=== PATIENT | male | born 1950 | race Caucasian/White ===

== ENCOUNTER 2017-10-03 14:31 | Inpatient (IN) | payer MEDICAID, OTHER ==
[2017-10-03] VITALS (7 sets, daily range): BP systolic 108–132; BP diastolic 71–90; PULSE 80–102; RESP 12–20; Ht 170.2 cm; Wt 79.9 kg
[~2017-10-03] VITALS: Ht 170.2 cm; Wt 79.9 kg
[~2017-10-03 14:31] MED LIST: ASPIRIN 81 MG TAB ONE; CLOPIDOGREL 75 MG TAB ONE; HEPARIN 5,000 UNIT/0.5 ML VIAL ONE; NITROGLYCERIN (SL) 0.4 MG TAB ONE; POTASSIUM CL ONE; SW ONE
[2017-10-03] MEDS ORDERED: ASPIRIN 81 MG TAB PO STA (14:42)
[2017-10-03] MEDS ORDERED: NITROGLYCERIN 2% 1 GM OINT PKT TD STA (14:42)
[2017-10-03] MEDS ORDERED: HEPARIN 1000 UNITS/ML 10 ML INJ IV STA (14:47)
--- NOTE | 2017-10-03 14:51 | ERD ---
ER Documentation Chief Complaint Chief Complaint mid sternal chest pain x40min non-radiating/non-provoked w/ SOB HPI Patient is a 66-year-old male with hypertension who presents with chest pain. The symptoms started 1 hour ago. The patient is having left-sided chest pressure. It is associated with shortness of breath as well. He has had no treatment as of yet. He does not currently have a primary doctor. ROS All systems reviewed and are negative except as per history of present illness. Medications Home Meds No Active Prescriptions or Reported Meds Allergies Allergies: Coded Allergies: No Known Allergy (Unverified , 07/30/14) PMhx/Soc Medical and Surgical Hx: pt denies Medical Hx Hx Cardiac Disorders: Yes (HTN) Hx Alcohol Use: Yes Hx Substance Use: No Hx Tobacco Use: No Smoking Status: Never smoker FmHx Family History: No coronary disease Physical Exam Vitals Vital Signs Date Time Temp Pulse Resp B/P Pulse Ox O2 Delivery O2 Flow Rate FiO2 10/03/17 14:35 98.1 75 20 166/96 99 Physical Exam Const: Moderate distress secondary to chest pain Head: Atraumatic Eyes: Normal Conjunctiva ENT: Normal External Ears, Nose and Mouth. Neck: Full range of motion..~ No meningismus. Resp: Clear to auscultation bilaterally Cardio: Regular rate and rhythm, no murmurs Abd: Soft, non tender, non distended. Normal bowel sounds Skin: No petechiae or rashes Back: No midline or flank tenderness Ext: No cyanosis, or edema Neur: Awake and alert Psych: Normal Mood and Affect Results 24 hrs Current Medications Medications (Trade) Dose Ordered Sig/Landy Route PRN Reason Start Time Stop Time Status Last Admin Dose Admin Aspirin (Aspirin) 162 mg ONCE STAT PO 10/03/17 14:42 10/03/17 14:43 DC Nitroglycerin (Nitroglycerin 2% Oint) 1 inch ONCE STAT TD 10/03/17 14:42 10/03/17 14:43 DC Nitroglycerin (Nitroglycerin (Sl Tab) 0.4 Mg) 1 tab Q5M UP TO 3 DOSES PRN SL CHEST PAIN 10/03/17 15:00 Procedures/MDM EKG read by me: Rate/Rhythm: Regular rate and rhythm at a normal rate Intervals: Normal Impression: ST elevations in the inferior leads with reciprocal depressions consistent with STEMI Chest x-ray is pending at this time. Patient is a 66-year-old male with hypertension who presents with acute chest pain. He was found to have STEMI on EKG. The patient was given aspirin, nitroglycerin, and heparin per Dr. Caceres. I spoke with Dr. Caceres at 1445 and she agreed to take the patient to the cardiac Policy Value Calculator. At 1442 I was shown the patient's EKG and a code STEMI was called overhead. The patient will be admitted to the panel team to the intensive care unit. Dr. Belle will be the accepting physician. Departure Diagnosis: Primary Impression: STEMI (ST elevation myocardial infarction) Involved coronary artery: unspecified coronary artery Qualified Code: I21.3 - ST elevation myocardial infarction (STEMI), unspecified artery Additional Impression: Chest pain Chest pain type: chest pain due to myocardial ischemia Ischemic chest pain type: unspecified angina pectoris type Qualified Code: I20.9 - Chest pain due to myocardial ischemia, unspecified ischemic chest pain type Condition: Critical NEVILLE BRAY MD Oct 03, 2017 14:51
[2017-10-03] MEDS: NITROGLYCERIN (SL) 0.4 MG TAB SL PRN ×2 (14:52→14:55)
[2017-10-03 14:55] LABS: BASOPHIL # 0.1 10^3/ul (0.0-0.1); BASOPHILS % 0.7 % (0.0-2.0); EOSINOPHILS # 0.3 10^3/ul (0.0-0.5); EOSINOPHILS % 2.4 % (0.0-7.0); HEMATOCRIT 46.8 % (42.0-52.0); LYMPHOCYTES # 4.3 10^3/ul (0.8-2.9); LYMPHOCYTES % 38.7 % (15.0-51.0); MEAN CORPUSCULAR HEMOGLOBIN 30.3 pg (29.0-33.0); MEAN CORPUSCULAR HGB CONC 34.2 g/dl (32.0-37.0); MEAN CORPUSCULAR VOLUME 88.6 fl (82.0-101.0); MEAN PLATELET VOLUME 8.6 fl (7.4-10.4); MONOCYTE # 0.7 10^3/ul (0.3-0.9); MONOCYTES % 6.7 % (0.0-11.0); NEUTROPHIL # 5.6 10^3/ul (1.6-7.5); NEUTROPHILS % 50.9 % (39.0-77.0); PLATELET COUNT 288 10^3/UL (140-415); RED BLOOD COUNT 5.28 10^6/ul (4.70-6.10); RED CELL DISTRIBUTION WIDTH 13.2 % (11.5-14.5); WHITE BLOOD COUNT 11.1 10^3/ul (4.8-10.8)
[2017-10-03] MEDS ORDERED: ASPIRIN 81 MG TAB PO ONE (15:00)
--- NOTE | 2017-10-03 15:05 | RADRPT ---
PROCEDURE: Chest x-ray CLINICAL INDICATION: Chest pain TECHNIQUE: Chest single view COMPARISON: None FINDINGS: The heart is normal in size. The pulmonary vessels are normal in caliber. The lungs are clear. The re is minimal scarring in the left lower lung. The costophrenic angles are sharp. The visualized buster ny thorax is unremarkable. IMPRESSION: No acute cardiopulmonary disease. RPTAT: HH .Flako Severino MD, MD Date Time Electronically viewed and signed by .Flako Severino MD, on 10/03/2017 15:05 .W/
[2017-10-03] MEDS ORDERED: IODIXANOL LOCM 100 ML BTL ONE (15:17)
[2017-10-03] MEDS ORDERED: MIDAZOLAM 1 MG/ML 2 ML INJ ONE (15:17)
[2017-10-03] MEDS ORDERED: HEPARIN 1000 UNITS/ML 10 ML INJ ONE (15:17)
[2017-10-03] MEDS ORDERED: LIDOCAINE 1% (MDV) 20 ML INJ ONE (15:17)
[2017-10-03] MEDS ORDERED: NITROGLYCERIN (IC) 100 MCG/ML INJ ONE (15:18)
[2017-10-03] MEDS ORDERED: VERAPAMIL 5 MG INJ ONE (15:18)
[2017-10-03] MEDS ORDERED: FENTAnyl 50 MCG/ML VIAL ONE (15:18)
[2017-10-03 15:19] LABS: CALCIUM 9.2 mg/dl (8.4-10.2); CREATININE 1.02 mg/dl (0.61-1.24); POTASSIUM 3.4 mmol/L (3.5-5.1)
[2017-10-03] MEDS ORDERED: SOD CHLORIDE 0.9% 500 ML ONE (15:30)
[2017-10-03 15:41] LABS: TROPONIN-I 0.444 ng/ml (0.00-0.12)
[2017-10-03] MEDS ORDERED: ATROPINE 1 MG/10 ML SYRINGE ONE (16:02)
[2017-10-03] MEDS ORDERED: DOPamine-D5W 1.6 MG/ML 250 ML ONE (16:02)
[2017-10-03] MEDS ORDERED: POTASSIUM CHLORIDE 50 ML ONE ×2 (16:04→16:07)
[2017-10-03] MEDS ORDERED: TICAGRELOR 90 MG TABLET ONE (16:33)
[2017-10-03] MEDS ORDERED: SOD CHLORIDE 0.9% 1,000 ML IV SCH (16:52)
[2017-10-03] MEDS ORDERED: ACETAMINOPHEN 325 MG TAB PO PRN (17:00)
[2017-10-03] MEDS ORDERED: NITROGLYCERIN (SL) 0.4 MG TAB SL PRN (17:00)
[2017-10-03] MEDS ORDERED: LORAZEPAM 0.5 MG TAB PO PRN (17:00)
[2017-10-03] MEDS ORDERED: NACL 0.9% 3 ML SYG IV SCH (17:00)
[2017-10-03] MEDS ORDERED: ONDANSETRON 4 MG INJ IV PRN (17:00)
[2017-10-03] MEDS ORDERED: morphine 2 MG INJ IV PRN (17:00)
[2017-10-03] MEDS ORDERED: HYDROCODONE/APAP (5/325) TAB PO PRN (17:00)
[2017-10-03] MEDS ORDERED: BISACODYL (EC) 5 MG TAB PO PRN (17:00)
--- NOTE | 2017-10-03 17:04 | OPR ---
Date/Time of Note Date/Time of Note DATE: 10/03/17 TIME: 16:57 Operative Report Procedure Date: Oct 03, 2017 Preoperative Diagnosis STEMI inferior wall Postoperative Diagnosis same, 2 vessel CAD Operation/Procedure Performed coronary angiogram PCI of RCA (culprit lesion) and LAD Surgeon see signature line Business Objects Consultant Rory Anesthesia Type: moderate sedation Estimated Blood Loss: 100 - 150 ml's Transfusion none Specimen none Grafts/Implants Synergy 3.0x24 to mid RCA, Synergy 2.5x20 to mid RCA Complications none Pt Condition Post Procedure: stable Disposition: other (ICU) Indications STEMI Procedure Description Informed consent obtained, pt brought to bolt labeler emergently. Right wrist prepped and draped, 1% lidocaine used for anesthesia. Using modified seldinger technique, access obtained in right radial artery, 6f sheath placed. A [place] catheter advanced to asc thoracic aorta, engaged the RCA and LM and images obtained. At this point, procedure converted to a PCI. Pt received additional heparin, ACT monitored. A Fredy Right guide engaged the RCA, a luge wire crossed the lesion. The lesion was predilated with a 2.5x12 balloon, stented with a 3.0x24 stent, and then postdilated up to 4.0 mm in its proximal portion. Upon reperfusion, pt had hypotension and bradycardia, received atropine and dopamine. Dopamine turned off near the end of the procedure. A FL3.5 guide engaged the LM. A luge wire advanced down the LAD, and the mid LAD lesion was directly stented with a 2.5x20 mm stent, postdilated to 3 cm with a noncompliant balloon. Images of both vessels obtained in multiple views including a wire out shot. No dissection noted, good YAJAIRA 3 flow seen. Sheath removed and replaced with a TR band. Pt left the room in stable condition Findings: LM - normal LAD 80% mid lesion LCX normal RCA dominant, occluded completely in its mid portion. RCA lesion yajaira flow 0--->3. lesion length 16 cm. Non-C lesion. LAD lesion yajaira flow 3--->3. Lesion lengthn 12 cm. Non-C lesion. LASHELL HATHAWAY Oct 03, 2017 17:04
--- NOTE | 2017-10-03 17:08 | CONS ---
Date/Time of Note Date/Time of Note DATE: 10/03/17 TIME: 17:04 Assessment/Plan Assessment/Plan Chief Complaint/Hosp Course 66 yo with inferior wall STEMI, underwent cath and PCI to culprit RCA lesion and PCI to LAD, both with drug eluting stents, is stable. Problems: Additional Assessment/Plan Imp: STEMI inferior wall hyperlipidemia probable hypertension heavy alcohol use Recc: ASA, Brilinta. Will load with clopidogrel in the am 600 mg Atorvastatin, metoprolol Echo ordered. If ef low or bp elevated will add an ARB Emph importance of med compliance, regular exercise, good food choices, and etoh cessation Consultation Date/Type/Reason Admit Date/Time Date of Consultation: Oct 03, 2017 Reason for Consultation STEMI Referring Provider: NEVILLE BRAY MD Hx of Present Illness 66yo who has not seen a doctor in years presents to the ER with chest pressure for one hour, driven by family. He is on no meds, thinks he has high cholesterol. No prior heart issues. Former smoker, quit about 10 years ago. Heavy drinker of about 4 beers daily per family. No family history of premature cad. Constitutional: improved, no complaints Eyes: no complaints ENT: no complaints Respiratory: shortness of breath Cardiovascular: chest pain Gastrointestinal: no complaints Genitourinary: no complaints Musculoskeletal: no complaints Skin: no complaints Neurologic: no complaints Endocrine: no complaints Lymphatic: no complaints Psychological: nl mood/affect, no complaints Past Medical History Medical History: high cholesterol Past Surgical History Past Surgical Hx: no surgical history Family History Significant Family History: no pertinent family hx Social History Alcohol Use: heavy Smoking Status: Former smoker Other Social History Exam/Review of Systems Vital Signs Vitals Vital Signs Date Time Temp Pulse Resp B/P Pulse Ox O2 Delivery O2 Flow Rate FiO2 10/03/17 15:01 66 18 118/77 100 2.0 10/03/17 14:45 Nasal Cannula 10/03/17 14:35 98.1 Exam Constitutional: alert, oriented, well developed Psych: nl mood/affect, no complaints Head: atraumatic, normocephalic Eyes: EOMI, nl conjunctiva, nl lids, nl sclera ENMT: nl external ears & nose, nl lips & teeth, nl nasal mucosa & septum Neck: supple, No bruits, No jvd Respiratory: clear to auscultation, normal air movement Cardiovascular: nl pulses, regular rate and rhythm, No murmurs/extra sounds Gastrointestinal: non-tender, soft Musculoskeletal: nl extremities to inspection, nl gait and stance Extremities: normal pulses, No edema Neurological: nl mental status, nl speech Skin: nl turgor, No rash or lesions Results Result Diagram: 10/03/17 1445 10/03/17 1445 Results 24 hrs Laboratory Tests Test 10/03/17 14:45 White Blood Count 11.1 H Red Blood Count 5.28 Hemoglobin 16.0 Hematocrit 46.8 Mean Corpuscular Volume 88.6 Mean Corpuscular Hemoglobin 30.3 Mean Corpuscular Hemoglobin Concent 34.2 Red Cell Distribution Width 13.2 Platelet Count 288 Mean Platelet Volume 8.6 Neutrophils % 50.9 Lymphocytes % 38.7 Monocytes % 6.7 Eosinophils % 2.4 Basophils % 0.7 Nucleated Red Blood Cells % 0.0 Neutrophils # 5.6 Lymphocytes # 4.3 H Monocytes # 0.7 Eosinophils # 0.3 Basophils # 0.1 Nucleated Red Blood Cells # 0.0 Sodium Level 142 Potassium Level 3.4 L Chloride Level 100 Carbon Dioxide Level 29 Anion Gap 16 Blood Urea Nitrogen 11 Creatinine 1.02 Glucose Level 121 Calcium Level 9.2 Troponin I 0.444 *H LASHELL HATHAWAY Oct 03, 2017 17:08
--- NOTE | 2017-10-03 17:14 | HP ---
Date/Time of Note Date/Time of Note DATE: 10/03/17 TIME: 17:09 Assessment/Plan VTE Prophylaxis VTE Prophylaxis Intervention: heparin, SCD's Lines/Catheters IV Catheter Type (from Nrs): Saline Lock Assessment/Plan Chief Complaint/Hosp Course Objective Physical exam General: Patient is laying in bed and answers questions appropriately Mentation: Patient is alert and oriented 4, Head: Normocephalic atraumatic Eyes: EOMI, pupils reactive to light Neck: Supple, nontender, midline Respiratory: Clear to auscultation bilaterally Cardiovascular: regular rate, no obvious murmurs Gastrointestinal: non-tender to palpation, bowel sounds heard. Neurological: Moves all extremities spontaneously Skin: No new skin lesions Assessment and plan STEMI -Status post cardiac cath, cardiology recommendations appreciated -1 stent in LAD and one stent in RCA -No chest pain, patient stable in ICU -Continue Brilinta, beta-christine, baby aspirin, statin, anticipate discharge with DAVID inhibitor Coronary artery disease -Undiagnosed secondary to not seeing a physician in many years -Brilinta, baby aspirin, statin, beta-christine, anticipate discharge with lisinopril or other DAVID inhibitor Hypokalemia -Replete as needed Disposition -Monitor in ICU for now -Over 40 minutes critical care time spent -Although computer states self-pay, patient states he had active [facility], will need to confirm as patient will either need to be discharged with Brilinta or Plavix. Problems: HPI/ROS Admit Date/Time Admit Date/Time Hx of Present Illness Patient is a 66-year-old male with no significant past medical history secondary to not visiting a physician in many years who presents with acute onset chest pain, found in the ED to be have STEMI. Cardiology quickly saw the patient patient was emergently taken to the cardiac laboratory engineer, patient returned to ICU with resolved chest pain and 2 stents. Patient currently has no acute complaints is resting comfortably in the ICU patient denies chest pain, nausea, vomiting, diarrhea, headache. PMH: Denies but has not seen a physician in many years PSH: Right shoulder surgery, no metal in body Social: Quit smoking 20 years ago, occasional alcohol, no drugs Meds: None ROS Eyes: no complaints ENT: no complaints Respiratory: shortness of breath Cardiovascular: chest pain Gastrointestinal: no complaints Genitourinary: no complaints Musculoskeletal: no complaints Skin: no complaints Neurologic: no complaints Lymphatic: no complaints Psychological: nl mood/affect, no complaints PMH/Family/Social Past Medical History Medical History: high cholesterol Past Surgical History Past Surgical Hx: no surgical history Social History Alcohol Use: heavy Smoking Status: Former smoker Exam/Review of Systems Vital Signs Vitals Vital Signs Date Time Temp Pulse Resp B/P Pulse Ox O2 Delivery O2 Flow Rate FiO2 10/03/17 15:01 66 18 118/77 100 2.0 10/03/17 14:45 Nasal Cannula 10/03/17 14:35 98.1 Labs Result Diagram: 10/03/17 1445 10/03/17 1445 Medications Medications Current Medications Aspirin (Halfprin) 81 mg DAILY PO ; Start 10/04/17 at 09:00 Ticagrelor (Brilinta) 90 mg BID PO ; Start 10/03/17 at 21:00 Carvedilol (Coreg) 3.125 mg BID PO ; Start 10/03/17 at 21:00 Atorvastatin Calcium 80 mg 80 mg DAILY@21 PO ; Start 10/03/17 at 21:00 Sodium Chloride (NS) 1,000 ml @ 75 mls/hr [id number] IV ; Start 10/03/17 at 16:52 ; Stop 10/04/17 at 06:11 Lorazepam (Ativan) 0.5 mg Q8H PRN PO ANXIETY; Start 10/03/17 at 17:00 Ondansetron HCl (Zofran Inj) 4 mg Q6H PRN IV NAUSEA AND/OR VOMITING; Start at 17:00 Nitroglycerin (Nitroglycerin (Sl Tab) 0.4 Mg) 1 tab Q5M PRN SL CHEST PAIN; Start 10/03/17 at 17:00 Acetaminophen (Tylenol Tab) 650 mg Q6H PRN PO PAIN LEVEL 1-3 OR FEVER; Start 10/03/17 at 17:00 Acetaminophen/ Hydrocodone Bitart ([place] (5/325)) 1 tab Q6H PRN PO PAIN LEVEL 4 -6; Start 10/03/17 at 17:00 Morphine Sulfate (morphine) 2 mg Q4H PRN IV PAIN LEVEL 7-10; Start 10/03/17 at 17:00; Status UNV Bisacodyl (Dulcolax) 5 mg DAILY PRN PO CONSTIPATION; Start 10/03/17 at 17:00; Status UNV Heparin Sodium (Porcine) (Heparin (5000 Units/0.5 ml)) 5,000 unit Q8 SC ; Start 10/03/17 at 22:00; Status UNV JUDIT CONNELLY Oct 03, 2017 17:14
[2017-10-03] MEDS ORDERED: LORAZEPAM 2 MG INJ IV PRN (17:30)
[2017-10-03] MEDS ORDERED: ATORVASTATIN 80 MG TAB PO SCH (21:00)
[2017-10-03] MEDS ORDERED: TICAGRELOR 90 MG TABLET PO SCH (21:00)
[2017-10-03] MEDS: HEPARIN 5,000 UNIT/0.5 ML VIAL SC SCH (21:14)
[2017-10-03 22:49] LABS: CK-MB 20.5 ng/ml (0.0-2.4); TROPONIN-I 5.8 ng/ml (0.00-0.12)
[2017-10-04] VITALS (15 sets, daily range): BP systolic 106–140; BP diastolic 71–101; PULSE 69–91; RESP 14–30
[2017-10-04 05:25] LABS: BASOPHILS % 0.4 % (0.0-2.0); EOSINOPHILS # 0.2 10^3/ul (0.0-0.5); EOSINOPHILS % 2.1 % (0.0-7.0); HEMATOCRIT 37.8 % (42.0-52.0); HEMOGLOBIN 12.9 g/dl (14.0-18.0); LYMPHOCYTES # 1.7 10^3/ul (0.8-2.9); LYMPHOCYTES % 17.7 % (15.0-51.0); MEAN CORPUSCULAR HEMOGLOBIN 30.5 pg (29.0-33.0); MEAN CORPUSCULAR HGB CONC 34.1 g/dl (32.0-37.0); MEAN CORPUSCULAR VOLUME 89.4 fl (82.0-101.0); MEAN PLATELET VOLUME 8.8 fl (7.4-10.4); MONOCYTE # 0.8 10^3/ul (0.3-0.9); MONOCYTES % 8.3 % (0.0-11.0); NEUTROPHIL # 6.9 10^3/ul (1.6-7.5); NEUTROPHILS % 70.8 % (39.0-77.0); PLATELET COUNT 226 10^3/UL (140-415); RED BLOOD COUNT 4.23 10^6/ul (4.70-6.10); RED CELL DISTRIBUTION WIDTH 13.2 % (11.5-14.5); WHITE BLOOD COUNT 9.8 10^3/ul (4.8-10.8)
[2017-10-04] MEDS: HEPARIN 5,000 UNIT/0.5 ML VIAL SC SCH ×2 (06:09→14:11)
--- NOTE | 2017-10-04 06:24 | PN ---
Date/Time of Note Date/Time of Note DATE: 10/04/17 TIME: 06:20 Assessment/Plan VTE Prophylaxis VTE Prophylaxis Intervention: heparin Lines/Catheters IV [facility] Saline Lock Urinary Cath still in place: No Assessment/Plan Chief Complaint/Hosp Course 66 yo with inferior wall STEMI, underwent cath and PCI to culprit RCA lesion and PCI to LAD, both with drug eluting stents, remaining stable overnight. Problems: Assessment/Plan STEMI inferior wall, post PCI with drug-eluting stent to mid RCA and mid LAD dyslipidemia Recommendations: Home on: clopidogrel 75 mg daily, asa 81 mg daily, metoprolol tartrate 50 mg bid , atorvastatin 80 mg po qhs ekg this am echo this am Discussed lifestyle with pt - pt walked/ran for exercise prior to admission, encouraged healthy food choices, fruits and vegetables, no alcohol Discussed importance of medication compliance and physician follow-up Pt states he has medi-price, he will find out who he should follow with, if for some reason he is unable or is uninsured, I can see him for his first follow-up visit and he has my card and office information Subjective 24 Hr Interval Summary Free Text/Dictation No events overnight. Patient denies chest pain, no shortness of breath. Exam/Review of Systems Vital Signs Vitals Vital Signs Date Time Temp Pulse Resp B/P Pulse Ox O2 Delivery O2 Flow Rate FiO2 10/04/17 05:00 82 29 110/75 96 Nasal Cannula 2.0 10/04/17 04:00 98.5 Intake and Output 10/03/17 10/03/17 10/04/17 15:00 23:00 07:00 Intake Total 725 ml 425 ml Output Total 250 ml 200 ml Balance 475 ml 225 ml Exam Constitutional: alert, oriented, well developed Psych: nl mood/affect, no complaints Head: atraumatic, normocephalic Eyes: EOMI, nl conjunctiva, nl lids, nl sclera ENMT: nl external ears & nose, nl lips & teeth, nl nasal mucosa & septum Neck: supple, No bruits, No jvd Respiratory: clear to auscultation, normal air movement Cardiovascular: nl pulses (normal right radial pulse), regular rate and rhythm Gastrointestinal: nl liver, spleen, non-tender, soft Musculoskeletal: nl extremities to inspection Extremities: No edema Neurological: nl mental status, nl speech Skin: nl turgor, No rash or lesions Results Result Diagram: 10/04/17 0447 10/03/17 1445 Results 24 hrs Laboratory Tests Test 10/03/17 14:45 10/03/17 21:55 10/04/17 04:47 White Blood Count 11.1 H 9.8 Red Blood Count 5.28 4.23 L Hemoglobin 16.0 12.9 L Hematocrit 46.8 37.8 L Mean Corpuscular Volume 88.6 89.4 Mean Corpuscular Hemoglobin 30.3 30.5 Mean Corpuscular Hemoglobin Concent 34.2 34.1 Red Cell Distribution Width 13.2 13.2 Platelet Count 288 226 # Mean Platelet Volume 8.6 8.8 Neutrophils % 50.9 70.8 Lymphocytes % 38.7 17.7 Monocytes % 6.7 8.3 Eosinophils % 2.4 2.1 Basophils % 0.7 0.4 Nucleated Red Blood Cells % 0.0 0.0 Neutrophils # 5.6 6.9 Lymphocytes # 4.3 H 1.7 Monocytes # 0.7 0.8 Eosinophils # 0.3 0.2 Basophils # 0.1 0.0 Nucleated Red Blood Cells # 0.0 0.0 Sodium Level 142 Potassium Level 3.4 L Chloride Level 100 Carbon Dioxide Level 29 Anion Gap 16 Blood Urea Nitrogen 11 Creatinine 1.02 Glucose Level 121 Calcium Level 9.2 Troponin I 0.444 *H 5.800 *H Creatine Kinase 348 H Creatine Kinase Index 5.9 Creatinine Kinase MB (Mass) 20.50 H Medications Medications Current Medications Aspirin (Halfprin) 81 mg DAILY PO ; Start 10/04/17 at 09:00 Atorvastatin Calcium (Lipitor) 80 mg DAILY@21 PO Last administered on t 21:12; Admin Dose 80 MG; Start 10/03/17 at 21:00 Lorazepam (Ativan) 0.5 mg Q8H PRN PO ANXIETY; Start 10/03/17 at 17:00 Ondansetron HCl (Zofran Inj) 4 mg Q6H PRN IV NAUSEA AND/OR VOMITING; Start at 17:00 Nitroglycerin (Nitroglycerin (Sl Tab) 0.4 Mg) 1 tab Q5M PRN SL CHEST PAIN; Start 10/03/17 at 17:00 Acetaminophen (Tylenol Tab) 650 mg Q6H PRN PO PAIN LEVEL 1-3 OR FEVER; Start 10/03/17 at 17:00 Acetaminophen/ Hydrocodone Bitart ([place] (5/325)) 1 tab Q6H PRN PO PAIN LEVEL 4 -6; Start 10/03/17 at 17:00 Morphine Sulfate (morphine) 2 mg Q4H PRN IV PAIN LEVEL 7-10; Start 10/03/17 at 17:00 Bisacodyl (Dulcolax) 5 mg DAILY PRN PO CONSTIPATION; Start 10/03/17 at 17:00 Heparin Sodium (Porcine) (Heparin (5000 Units/0.5 ml)) 5,000 unit Q8 SC Last administered on 10/04/17t 06:09; Admin Dose 5,000 UNIT; Start 10/03/17 at 22: 00 Lorazepam (Ativan) 2 mg Q10MIN PRN IV seizure; Start 10/03/17 at 17:30 Clopidogrel Bisulfate (plaVIX) 600 mg ONCE ONCE PO ; Start 10/04/17 at 06:30; Stop 10/04/17 at 06:31; Status UNV Clopidogrel Bisulfate (plaVIX) 75 mg DAILY ONCE PO ; Start 10/05/17 at 09:00; Stop 10/05/17 at 09:01; Status UNV Metoprolol Tartrate (Lopressor) 50 mg BID PO ; Start 10/04/17 at 09:00; Status UNV LASHELL HATHAWAY Oct 04, 2017 06:24
[2017-10-04] MEDS ORDERED: CLOPIDOGREL 75 MG TAB PO ONE (06:30)
[2017-10-04 06:33] LABS: CHOL/HDL RATIO 4.8 RATIO
[2017-10-04 06:39] LABS: CK-MB 28.2 ng/ml (0.0-2.4); TROPONIN-I 12.1 ng/ml (0.00-0.12)
[2017-10-04] MEDS ORDERED: ASPIRIN (EC) 81 MG TAB PO SCH (09:00)
[2017-10-04] MEDS ORDERED: METOPROLOL 50 MG TAB PO SCH (09:00)
[2017-10-04 09:21] LABS: ALBUMIN 2.9 g/dl (3.3-4.9); ALBUMIN/GLOBULIN RATIO 0.87; CALCIUM 8.5 mg/dl (8.4-10.2); CREATININE 0.84 mg/dl (0.61-1.24); MAGNESIUM 1.8 mg/dl (1.7-2.5); POTASSIUM 3.9 mmol/L (3.5-5.1); TOTAL PROTEIN 6.2 g/dl (6.1-8.1)
[2017-10-04 09:51] LABS: THYROID STIMULATING HORMONE 0.988 MIU/L (0.465-4.680)
--- NOTE | 2017-10-04 10:36 | RADRPT ---
Vent Rate: 77 bpm RR Interval: 0 msec AK Interval: 150 msec QRS Duration: 102 msec QT Interval: 450 msec QTC Interval: 509 msec P-R-T [place]: 62 - -74 - -81 degrees Normal sinus rhythm Possible Left atrial enlargement Left axis deviation Incomplete right bundle branch block T wave abnormality, consider inferolateral ischemia Prolonged QT Abnormal ECG Electronically Signed By: Isaías Edwards [id number]
--- NOTE | 2017-10-04 12:20 | PDOCDIS ---
Discharge Instructions CONDITION Patient Condition: Stable FOLLOW UP/APPOINTMENTS Follow-up Plan 1. Please follow up with your primary care provider within 1 week 2. Please follow up with Dr. Sejal Lau within 2 weeks 3. Take all new medications as prescribed. JUDIT CONENLLY Oct 04, 2017 12:20
[2017-10-04] MEDS ORDERED: ASPI-664 PO (12:22)
[2017-10-04] MEDS ORDERED: CLOP75TA28 PO (12:22)
[2017-10-04] MEDS ORDERED: ATOR80TA75 PO (12:22)
[2017-10-04] MEDS ORDERED: METO-429 PO (12:22)
--- NOTE | 2017-10-04 14:53 | DS ---
Date/Time of Note Date/Time of Note DATE: 10/04/17 TIME: 14:53 Discharge Summary Admission/Discharge Info Admit Date/Time Oct 03, 2017 at 17:27 Discharge Date/Time Patient Condition: Stable Hx of Present Illness Patient is a 66-year-old male with no significant past medical history secondary to not visiting a physician in many years who presents with acute onset chest pain, found in the ED to be have STEMI. Cardiology quickly saw the patient patient was emergently taken to the cardiac biological lab technician, patient returned to ICU with resolved chest pain and 2 stents. Patient currently has no acute complaints is resting comfortably in the ICU patient denies chest pain, nausea, vomiting, diarrhea, headache. PMH: Denies but has not seen a physician in many years PSH: Right shoulder surgery, no metal in body Social: Quit smoking 20 years ago, occasional alcohol, no drugs Meds: None Hospital Course Patient is a 66-year-old male with no significant past medical history secondary to not visiting physician's office in many years who presented as a ST elevation LA from the ED and emergently taken to the cardiac biological lab technician. Patient was given 2 stents in the RCA and LAD and recovered well overnight in the ICU. Patient has no chest pain at this time and would like to be discharged home, cardiology has also suggested patient follow-up within 2-4 weeks the patient also stated he will follow with primary care provider within 2 -4 weeks. Patient will be discharged with a more appropriate cardiac medications and physical therapy also cleared patient to discharge home. Home Meds Active Scripts Aspirin* (Aspirin* EC) 81 Mg Tablet.dr 81 MG PO DAILY for 30 Days, #30 3 Refills Prov:JUDIT CONNELLY 10/04/17 Metoprolol Tartrate* (Lopressor*) 50 Mg Tab, 50 MG PO BID for 30 Days, #60 TAB 3 Refills Prov:JUDIT CONNELLY 10/04/17 Atorvastatin* (Atorvastatin*) 80 Mg Tablet, 80 MG PO DAILY@21 for 30 Days, #30 TAB 3 Refills Prov:JUDIT CONNELLY 10/04/17 Clopidogrel Bisulfate (Clopidogrel) 75 Mg Tablet, 75 MG PO DAILY for 30 Days, # 30 TAB 11 Refills Prov:JUDIT CONNELLY 10/04/17 Follow-up Plan 1. Please follow up with your primary care provider within 1 week 2. Please follow up with Dr. Sejal Lau within 2 weeks 3. Take all new medications as prescribed. Primary Care Provider Not On Staff Doctor Time spent on discharge: > 30 minutes Pending Labs Laboratory Tests Test 10/03/17 21:55 10/04/17 04:47 Creatine Kinase 348IU/L (23-200) 517IU/L (23-200) Creatine Kinase Index 5.9 5.5 Creatinine Kinase MB (Mass) 20.50ng/ml (0.0-2.4) 28.20ng/ml (0.0-2.4) Troponin I 5.800ng/ml (0.00-0.12) 12.100ng/ml (0.00-0.12) White Blood Count 9.810^3/ul (4.8-10.8) Red Blood Count 4.2310^6/ul (4.70-6.10) Hemoglobin 12.9g/dl (14.0-18.0) Hematocrit 37.8% (42.0-52.0) Mean Corpuscular Volume 89.4fl (82.0-101.0) Mean Corpuscular Hemoglobin 30.5pg (29.0-33.0) Mean Corpuscular Hemoglobin Concent 34.1g/dl (32.0-37.0) Red Cell Distribution Width 13.2% (11.5-14.5) Platelet Count 56934^3/UL (140-415) Mean Platelet Volume 8.8fl (7.4-10.4) Neutrophils % 70.8% (39.0-77.0) Lymphocytes % 17.7% (15.0-51.0) Monocytes % 8.3% (0.0-11.0) Eosinophils % 2.1% (0.0-7.0) Basophils % 0.4% (0.0-2.0) Nucleated Red Blood Cells % 0.0/100WBC (0.0-0.0) Neutrophils # 6.910^3/ul (1.6-7.5) Lymphocytes # 1.710^3/ul (0.8-2.9) Monocytes # 0.810^3/ul (0.3-0.9) Eosinophils # 0.210^3/ul (0.0-0.5) Basophils # 0.010^3/ul (0.0-0.1) Nucleated Red Blood Cells # 0.010^3/ul (0.0-0.0) Sodium Level 136mmol/L (135-144) Potassium Level 3.9mmol/L (3.5-5.1) Chloride Level 104mmol/L (97-110) Carbon Dioxide Level 24mmol/L (21-31) Anion Gap 12 (8-16) Blood Urea Nitrogen 10mg/dl (7-20) Creatinine 0.84mg/dl (0.61-1.24) Glucose Level 107mg/dl (70-220) Hemoglobin A1c 5.8% (0-5.9) Calcium Level 8.5mg/dl (8.4-10.2) Magnesium Level 1.8mg/dl (1.7-2.5) Total Bilirubin 1.0mg/dl (0.2-1.3) Direct Bilirubin 0.00mg/dl (0.00-0.20) Indirect Bilirubin 1.0mg/dl (0-1.1) Aspartate Amino Transf (AST/SGOT) 81IU/L (15-46) Alanine Aminotransferase (ALT/SGPT) 31IU/L (13-69) Alkaline Phosphatase 87IU/L (42-121) Total Protein 6.2g/dl (6.1-8.1) Albumin 2.9g/dl (3.3-4.9) Globulin 3.30g/dl (1.3-3.2) Albumin/Globulin Ratio 0.87 Triglycerides Level 81mg/dl (0-149) Cholesterol Level 188mg/dl (100-200) LDL Cholesterol, Calculated 133mg/dl HDL Cholesterol 39mg/dl (30-78) Cholesterol/HDL Ratio 4.8RATIO Thyroid Stimulating Hormone (TSH) 0.988MIU/L (0.465-4.680) JUDIT CONNELLY Oct 04, 2017 14:53
--- NOTE | 2017-10-05 06:12 | RADRPT ---
Echocardiogram Report Patient Name: JACKELYN CANO Gender: Male Date: 1950 Study Date: 04-Oct-2017 Historic Interpreter: Corky Hernandes [facility] Location: [address] Ref. Physician: SEJAL HATHAWAY Quality: Adequate Procedures: Transthoracic echocardiogram with complete 2D, M-Mode, and doppler examination. Indications: STEMI. 2D/M Mode Doppler Measurement Value Normal Ranges Measurement Value Normal Ranges LVIDd 2D 4.5 3.5 - 5.6 cm AV Peak Micheal 1.1 m/sec LVIDs 2D 3.0 2.1 - 4.1 cm AV Peak PG 5.0 mmHg FS 2D 34.0 % LVOT Peak Micheal 0.9 m/sec LVPWd 2D 1.1 0.6 - 1.1 cm LVOT Peak PG 4.0 mmHg IVSd 2D 1.1 0.6 - 1.1 cm MV E Peak Micheal 0.8 m/sec IVS/LVPW 2D 1.0 MV A Peak Micheal 0.9 m/sec AoR Diam 2D 2.8 2.0 - 3.7 cm MV E/A 0.9 LA/Ao 2D 1 0 - 1 MV Decel Time 197 msec EDV 2D 93.0 cm3 MV E/A 0.9 ESV 2D 26.7 cm3 TR Peak Micheal 2.0 m/sec LA Dimen 2D 3.6 2.3 - 4.0 cm TR Peak PG 17.0 mmHg RVSP 20.0 mmHg Findings Left Ventricle: Normal left ventricular systolic function. Normal left ventricular cavity size. Left ventricular wall thickness upper limits of normal. Ejection fraction is visually estimated at 55 %. Tissue Doppler/Mitral Doppler indices are consistent with impaired relaxation (Stage I diastolic dysfunction). Right Ventricle: Normal right ventricular size. Normal right ventricular systolic function. Left Atrium: The left atrium is normal in size. Right Atrium: The right atrium is normal in size. Mitral Valve: Mild mitral leaflet calcification. Moderate mitral annular calcification. Trace mitral regurgitation. Aortic Valve: Aortic sclerosis without significant stenosis. Tricuspid Valve: Normal appearance of the tricuspid valve. Estimated peak PA systolic pressure 20 mmHg. There is trace tricuspid regurgitation. Pulmonic Valve: Pulmonic valve not well visualized. There is trace pulmonic regurgitation. Pericardium: Normal pericardium with no significant pericardial effusion. Aorta: Normal aortic root. IVC: Normal size and normal respiratory collapse consistent with normal right atrial pressure. Conclusions Good quality study. Normal left ventricular systolic function without wall motion abnormalities. Trace mitral and tricuspid regurgitation with normal pulmonary pressures. Impaired diastolic function. Electronically Signed By: Sejal Hathaway 05-Oct-2017 06:11:52 -0800 Patient Name: JACKELYN CANO Study Date: 04-Oct-[id number]
[2017-10-05] MEDS ORDERED: CLOPIDOGREL 75 MG TAB PO SCH (09:00)
== END 2017-10-04 15:45 | disposition home or self-care (01) | DRG 247 ==
LOC: E/R 14:31 → CCL 15:05 → SDS 15:05 → CCL 17:18 → ICU 17:27
PROVIDERS: ADMIT Internal Medicine; ATTEND Internal Medicine
PROC: 4A023N7 Measurement of Cardiac Sampling and Pressure, Left Heart, Percutaneous Approach (ICD-10-PCS; 2017-10-03)
PROC: B2001ZZ Plain Radiography of Single Coronary Artery using Low Osmolar Contrast (ICD-10-PCS; 2017-10-03)
PROC: 027135Z Dilation of Coronary Artery, Two Arteries with Two Drug-eluting Intraluminal Devices, Percutaneous Approach (ICD-10-PCS; principal; 2017-10-03 15:00)
DX: I21.19 ST elevation (STEMI) myocardial infarction involving other coronary artery of inferior wall (principal); I10 Essential (primary) hypertension; Z72.89 Other problems related to lifestyle; E78.5 Hyperlipidemia, unspecified; Z87.891 Personal history of nicotine dependence; I25.10 Atherosclerotic heart disease of native coronary artery without angina pectoris
CPT/HCPCS: 71010; 80048; 80053; 80061; 82550; 82553; 83036; 83735; 84443; 84484; 85025; 87081; 93005; 93306; 96374; 97163; C1725; C1874; C1887; C9606; J0461; J1265; J1644; J2250; J3010; J3480; J7040; Q9967

== ENCOUNTER 2019-08-16 16:56 | Inpatient (IN) | payer MEDICARE, OTHER ==
[~2019-08-16] VITALS: Ht 162.6 cm; Wt 73.6 kg
[~2019-08-16 16:56] MED LIST changes: +ASPI-817 PO; -ASPIRIN 81 MG TAB ONE; +ATOR-2 PO; +CLOP75TA28 PO; -CLOPIDOGREL 75 MG TAB ONE; -HEPARIN 5,000 UNIT/0.5 ML VIAL ONE; +LEVO500T48 PO; +LISI40TA3 PO; +METO-429 PO; -NITROGLYCERIN (SL) 0.4 MG TAB ONE; +OSEL75CA16 PO; -POTASSIUM CL ONE; -SW ONE
[2019-08-16] MEDS ORDERED: CEFEPIME 2GM/50 ML (PMX) 50 ML IVPB STA (17:34)
[2019-08-16] MEDS ORDERED: ACETAMINOPHEN 325 MG TAB PO STA (17:34)
[2019-08-16] MEDS ORDERED: SODIUM CHLORIDE 0.9% 1L BAG IV* STA (17:34)
[2019-08-16] MEDS ORDERED: VANCOMYCIN 1 GM (PMX) 250 ML IVPB ONE (18:00)
[2019-08-16] MEDS ORDERED: IBUPROFEN 800 MG TAB PO ONE (19:00)
[2019-08-16] MEDS ORDERED: ASPIRIN 325 MG TAB PO ONE (19:30)
[2019-08-16] MEDS ORDERED: ACETAMINOPHEN 325 MG TAB PO PRN ×2 (21:00)
[2019-08-16] MEDS ORDERED: NITROGLYCERIN (SL) 0.4 MG TAB SL PRN (21:00)
[2019-08-16] MEDS ORDERED: ONDANSETRON 4 MG INJ IV PRN ×2 (21:00)
[2019-08-16] MEDS ORDERED: DOCUSATE SODIUM 100 MG CAP PO PRN (21:00)
[2019-08-16] MEDS ORDERED: NACL 0.9% 3 ML SYG IV SCH (21:00)
[2019-08-16] MEDS ORDERED: BISACODYL (EC) 5 MG TAB PO PRN (21:00)
[2019-08-16] MEDS ORDERED: ATORVASTATIN 80 MG TAB PO SCH (21:00)
[2019-08-16] MEDS ORDERED: IOHEXOL 100 ML ONE (21:04)
[2019-08-16] MEDS ORDERED: SOD CHLORIDE 0.9% 100 ML ONE (21:04)
[2019-08-16] MEDS: METOPROLOL 50 MG TAB PO SCH (23:26)
[2019-08-16 23:34] VITALS: BP 160/101; PULSE 93; RESP 20; Ht 162.6 cm; Wt 73.6 kg
[2019-08-17 01:15] VITALS: BP 156/93; PULSE 88
[2019-08-17 04:58] VITALS: BP 58/96; PULSE 77; RESP 16
[2019-08-17] MEDS ORDERED: VANCOMYCIN IV PER PHARMACY XX SCH (05:00)
[2019-08-17] MEDS ORDERED: VANCOMYCIN 750 MG (PMX) 250 ML IVPB SCH (06:00)
[2019-08-17 07:49] VITALS: BP 156/99; PULSE 77; RESP 18
[2019-08-17] MEDS ORDERED: CEFEPIME 2GM/50 ML (PMX) 50 ML IVPB SCH (09:00)
[2019-08-17] MEDS ORDERED: ASPIRIN (EC) 81 MG TAB PO SCH (09:00)
[2019-08-17] MEDS ORDERED: CLOPIDOGREL 75 MG TAB PO SCH (09:00)
[2019-08-17] MEDS: METOPROLOL 50 MG TAB PO SCH (09:09)
[2019-08-17 11:43] VITALS: BP 169/91; PULSE 77; RESP 18
[2019-08-17] MEDS ORDERED: hydrALAzine 20 MG INJ IV PRN (12:00)
[2019-08-17] MEDS ORDERED: OSELTAMIVIR 75 MG CAP PO SCH (12:30)
[2019-08-17] MEDS ORDERED: FLU VACC 2019-20(65YR UP)/PF 0.5 ML SYG IM* ONE (16:00)
[2019-08-17 16:45] VITALS: BP 156/79; PULSE 98; RESP 18
[2019-08-18] MEDS ORDERED: LISINOPRIL 20 MG TAB PO SCH (09:00)
== END 2019-08-17 19:22 | disposition home or self-care (01) | DRG 202 ==
LOC: E/R 16:56 → 6WM 20:33
PROVIDERS: ADMIT Family Medicine; ATTEND Family Medicine
DX: J40 Bronchitis, not specified as acute or chronic (principal); R65.10 Systemic inflammatory response syndrome (SIRS) of non-infectious origin without acute organ dysfunction; R07.9 Chest pain, unspecified; J11.1 Influenza due to unidentified influenza virus with other respiratory manifestations; I25.2 Old myocardial infarction; I25.10 Atherosclerotic heart disease of native coronary artery without angina pectoris; E78.5 Hyperlipidemia, unspecified; E80.6 Other disorders of bilirubin metabolism; I10 Essential (primary) hypertension; R73.03 Prediabetes; Z91.19 Patient's noncompliance with other medical treatment and regimen; Z95.5 Presence of coronary angioplasty implant and graft; Z91.14 Patient's other noncompliance with medication regimen; Z87.891 Personal history of nicotine dependence; Z79.82 Long term (current) use of aspirin
CPT/HCPCS: 36415; 71045; 71275; 80053; 80061; 81001; 82150; 82550; 82553; 83036; 83605; 83690; 83735; 84145; 84443; 84484; 85025; 85610; 85730; 87086; 87400; 93005; 93306; 96361; 96374; 96375; J0360; J0692; J3370; J7030; Q9967